=== PATIENT | male | born 1975 | race Caucasian/White ===

== ENCOUNTER 2025-08-11 11:02 | Emergency (ER) | payer BC ==
[~2025-08-11] VITALS: Ht 185.4 cm; Wt 85.2 kg
[2025-08-11 14:06] VITALS: BP 185/111
== END 2025-08-11 14:10 | disposition left against medical advice (07) ==
LOC: ED 11:02
DX: Z53.21 Procedure and treatment not carried out due to patient leaving prior to being seen by health care provider (principal)